=== PATIENT | female | born 1985 | race Caucasian/White ===

== ENCOUNTER 2016-09-21 10:06 | Day surgery (SDC) | payer MEDICAID ==
[~2016-09-21] VITALS: Ht 162.6 cm; Wt 83.5 kg
== END 2016-09-21 11:03 | disposition home or self-care (01) ==
LOC: SSS 10:06
DX: G35 Multiple sclerosis (principal); Z53.9 Procedure and treatment not carried out, unspecified reason; E34.8 Other specified endocrine disorders; Q34.9 Congenital malformation of respiratory system, unspecified; Z88.1 Allergy status to other antibiotic agents; Z88.6 Allergy status to analgesic agent; Z88.5 Allergy status to narcotic agent; Z79.899 Other long term (current) drug therapy; Z90.49 Acquired absence of other specified parts of digestive tract; Z90.710 Acquired absence of both cervix and uterus; F17.210 Nicotine dependence, cigarettes, uncomplicated

== ENCOUNTER → 2016-09-28 | Outpatient (CLI) | payer MEDICAID | END | disposition home or self-care (01) | LOC: RAD.S 09-18 10:41 | DX: G35 Multiple sclerosis (principal); M62.81 Muscle weakness (generalized); R20.0 Anesthesia of skin; M25.78 Osteophyte, vertebrae ==

== ENCOUNTER 2016-10-02 08:58 | Day surgery (SDC) | payer MEDICAID ==
[~2016-10-02] VITALS: Ht 162.6 cm; Wt 83.6 kg
== END 2016-10-02 15:06 | disposition home or self-care (01) ==
LOC: SSS 08:58
PROC: 0Q903ZZ Drainage of Lumbar Vertebra, Percutaneous Approach (ICD-10-PCS; principal; 2016-10-02)
DX: R93.8 Abnormal findings on diagnostic imaging of other specified body structures (principal); Z88.1 Allergy status to other antibiotic agents; Z79.899 Other long term (current) drug therapy; Z79.891 Long term (current) use of opiate analgesic